=== PATIENT | male | born 1945 | race Caucasian/White ===

== ENCOUNTER 2017-10-30 14:58 | Emergency (ER) | payer MEDICARE, OTHER ==
[2017-10-30 14:59] VITALS: BMI 26.5
[2017-10-30 15:17] VITALS: BP 118/72; PULSE 102; RESP 16; TEMP 98.9; O2SAT 98
--- NOTE | 2017-10-30 17:45 | ED PDOC ---
HPI: CCC, URI, Sore Throat Time Seen by Provider: 10/30/17 15:50 Chief Complaint (Nursing): Fever Chief Complaint (Provider): Fever History Per: Lost Charge Card Clerk (jesus #[id number]) History/Exam Limitations: language barrier (micronesian) Onset/Duration Of Symptoms: Days (x4) Current Symptoms Are (Timing): Still Present Additional Complaint(s): 72 year old male with previous medical history of hypertension and diabetes, who presents to the emergency department with a complaint of sore throat associated with cough and subjective fever ongoing for 4 days. Denied any chills , chest pain or shortness of breath. Patient stated he took Motrin for pain relief. PMD: Maurizio Morales MD Past Medical History Reviewed: Historical Data, Nursing Documentation, Vital Signs Vital Signs: Last Vital Signs Temp 98.9 F 10/30/17 15:14 Pulse 102 H 10/30/17 15:14 Resp 16 10/30/17 15:14 BP 118/72 10/30/17 15:14 Pulse Ox 98 10/30/17 17:49 - Medical History PMH: Anemia, Arthritis, Diabetes, Gastritis, HTN, Hypercholesterolemia, Peripheral Edema (occasional) Denies: HIV, Chronic Kidney Disease - Surgical History Surgical History: No Surg Hx - Family History Family History: States: Unknown Family Hx - Social History Current smoker - smoking cessation education provided: No Ex-Smoker (has not smoked in the last 12 months): No Alcohol: None Drugs: Denies - Home Medications Home Medications: Ambulatory Orders Medication Instructions Recorded Aspirin [Adult Low Dose Aspirin EC] 81 mg PO DAILY 10/04/16 Losartan [Cozaar] 50 mg PO DAILY 10/04/16 Metformin HCl [Glucophage] 850 mg PO BID 10/04/16 [id number]-[id number] Ethyl Esters [OMEGA 3] 1,000 mg PO BID 10/04/16 Rosuvastatin Calcium [Crestor] 10 mg PO DAILY 10/04/16 Ciprofloxacin HCl [Cipro] 500 mg PO BID #20 tablet 12/31/16 traMADol [Ultram] 50 mg PO TID PRN #30 tab 12/31/16 Levofloxacin [Levaquin] 500 mg PO DAILY #7 tablet 10/30/17 - Allergies Allergies/Adverse Reactions: Allergies Allergy/AdvReac Type Severity Reaction Status Date / Time Penicillins Allergy RASH Verified 10/31/16 14:11 Review of Systems ROS Statement: Except As Marked, All Systems Reviewed And Found Negative Constitutional: Positive for: Fever (subjective). Negative for: Chills ENT: Positive for: Throat Pain Cardiovascular: Negative for: Chest Pain Respiratory: Positive for: Cough. Negative for: Shortness of Breath Physical Exam - Reviewed Nursing Documentation Reviewed: Yes Vital Signs Reviewed: Yes - Physical Exam Appears: Positive for: Well, Non-toxic, No Acute Distress Skin: Positive for: Normal Color Eye Exam: Positive for: Normal appearance ENT: Positive for: Normal ENT Inspection Neck: Positive for: Normal Cardiovascular/Chest: Positive for: Regular Rate, Rhythm, Chest Non Tender Respiratory: Positive for: Normal Breath Sounds. Negative for: Decreased Breath Sounds, Respiratory Distress Neurologic/Psych: Positive for: Alert (x3), Oriented - ECG O2 Sat by Pulse Oximetry: 98 (RA) Pulse Ox Interpretation: Normal Medical Decision Making Medical Decision Making: Initial Impression: Viral illness Initial Plan: * Influenza A B Time: 1730 --Influenza: negative Scribe Attestation: Documented by Blaire Mcclure, acting as a scribe for Norma Garcia PA-C. Provider Scribe Attestation: All medical record entries made by the Scribe were at my direction and personally dictated by me. I have reviewed the chart and agree that the record accurately reflects my personal performance of the history, physical exam, medical decision making, and the department course for this patient. I have also personally directed, reviewed, and agree with the discharge instructions and disposition. Disposition - Clinical Impression Clinical Impression: URI (upper respiratory infection) Counseled Patient/Family Regarding: Diagnosis, Need For Followup, Rx Given - Disposition Disposition: Routine/Home Disposition Time: 17:35 Condition: STABLE Prescriptions: Levofloxacin [Levaquin] 500 mg PO DAILY #7 tablet Instructions: Upper Respiratory Infection (ED) Forms: [employer] (Frisian) Print Language: OCCITAN
== END 2017-10-30 17:53 | disposition home or self-care (01) ==
LOC: H.ER 14:58
DX: J06.9 Acute upper respiratory infection, unspecified (principal); E11.9 Type 2 diabetes mellitus without complications; E78.00 Pure hypercholesterolemia, unspecified; I10 Essential (primary) hypertension; Z79.82 Long term (current) use of aspirin; Z87.891 Personal history of nicotine dependence; Z88.0 Allergy status to penicillin

== ENCOUNTER 2017-11-17 13:57 | Emergency (ER) | payer MEDICARE, OTHER ==
[2017-11-17 13:58] VITALS: BMI 26.5
[2017-11-17 14:37] VITALS: BP 122/74; PULSE 82; RESP 18; TEMP 98.4; O2SAT 95
[2017-11-17] MEDS ORDERED: Sodium Chloride 0.9% 1,000 ML IV STA (14:47)
[2017-11-17] MEDS ORDERED: Iohexol 240 (50 ml) PO ONE (14:47)
--- NOTE | 2017-11-17 14:49 | ED PDOC ---
HPI: Abdomen Time Seen by Provider: 11/17/17 14:39 Chief Complaint (Nursing): Abdominal Pain Chief Complaint (Provider): Abdominal Pain History Per: Patient History/Exam Limitations: no limitations Onset/Duration Of Symptoms: Days (x8) Current Symptoms Are (Timing): Still Present Additional Complaint(s): 72-year-old male with a past medical history of diabetes, hypertension, and hypercholesterolemia, presents to the ER complaining of diffuse abdominal pain for 8 days. Patient states yesterday the pain worsened, especially near the right side and epigastrium. Denies any associated nausea, vomiting, diarrhea, chest pain, shortness of breath, weakness, or fever. Patient takes daily baby aspirin, as well as a statin and vascepa for his cholesterol. PMD: Dr. Morales Past Medical History Reviewed: Historical Data, Nursing Documentation, Vital Signs Vital Signs: Last Vital Signs Temp 98.4 F 11/17/17 14:33 Pulse 82 11/17/17 14:33 Resp 18 11/17/17 14:33 BP 122/74 11/17/17 14:33 Pulse Ox 95 11/17/17 17:07 - Medical History PMH: Anemia, Arthritis, Diabetes, Gastritis, HTN, Hypercholesterolemia, Peripheral Edema (occasional) Denies: HIV, Chronic Kidney Disease - Surgical History Surgical History: No Surg Hx - Family History Family History: States: Unknown Family Hx - Social History Ex-Smoker (has not smoked in the last 12 months): Yes Alcohol: None Drugs: Denies - Home Medications Home Medications: Ambulatory Orders Medication Instructions Recorded Aspirin [Adult Low Dose Aspirin EC] 81 mg PO DAILY 10/04/16 Losartan [Cozaar] 50 mg PO DAILY 10/04/16 Metformin HCl [Glucophage] 850 mg PO BID 10/04/16 Hhlwj-3-Nebo Ethyl Esters [OMEGA 3] 1,000 mg PO BID 10/04/16 Rosuvastatin Calcium [Crestor] 10 mg PO DAILY 10/04/16 Ciprofloxacin HCl [Cipro] 500 mg PO BID #20 tablet 12/31/16 traMADol [Ultram] 50 mg PO TID PRN #30 tab 12/31/16 Levofloxacin [Levaquin] 500 mg PO DAILY #7 tablet 10/30/17 Famotidine [Pepcid] 20 mg PO DAILY PRN #6 tab 11/17/17 - Allergies Allergies/Adverse Reactions: Allergies Allergy/AdvReac Type Severity Reaction Status Date / Time Penicillins Allergy RASH Verified 10/31/16 14:11 Review of Systems ROS Statement: Except As Marked, All Systems Reviewed And Found Negative Constitutional: Negative for: Fever, Chills Cardiovascular: Negative for: Chest Pain Respiratory: Negative for: Shortness of Breath Gastrointestinal: Positive for: Abdominal Pain. Negative for: Nausea, Vomiting , Diarrhea Neurological: Negative for: Weakness, Numbness, Dizziness Physical Exam - Reviewed Nursing Documentation Reviewed: Yes Vital Signs Reviewed: Yes - Physical Exam Appears: Positive for: Non-toxic, No Acute Distress Head Exam: Positive for: ATRAUMATIC, NORMOCEPHALIC Skin: Positive for: Normal Color, Warm, Dry Eye Exam: Positive for: EOMI, Normal appearance, PERRL Neck: Positive for: Normal, Painless ROM, Supple Cardiovascular/Chest: Positive for: Regular Rate, Rhythm. Negative for: Murmur Respiratory: Positive for: Normal Breath Sounds. Negative for: Accessory Muscle Use, Respiratory Distress Pulses-Radial (L): 2+ Pulses-Radial (R): 2+ Gastrointestinal/Abdominal: Positive for: Soft, Tenderness (at the right upper & lower quadrants, left lower quadrant, and epigastric). Negative for: Mass Back: Positive for: Normal Inspection. Negative for: L CVA Tenderness, R CVA Tenderness, Vertebral Tenderness Extremity: Positive for: Normal ROM. Negative for: Pedal Edema, Deformity Neurologic/Psych: Positive for: Alert, Oriented - Laboratory Results Result Diagrams: 11/17/17 15:30 11/17/17 15:30 Interpretation Of Abn Labs: no acute - ECG ECG: Positive for: Interpreted By Me, Viewed By Nc ECG Rhythm: Positive for: Normal QRS, Normal ST Segment, Sinus Rhythm O2 Sat by Pulse Oximetry: 95 (RA) Pulse Ox Interpretation: Normal - CT Scan/US US Abdomen Other Rad Studies (CT/US): Read By Radiologist, Radiology Report Reviewed Other Rad Interpretation: No acute findings *see report below - Progress ED Course And Treament: Time: 16:40 US Abdomen Limited: FINDINGS: LIVER: Measures 16.3 cm in length. Patent portal vein. Portal venous flow: Hepatopetal. Unremarkeable echogenicity of the liver parenchyma. No mass. No intrahepatic bile duct dilatation. Incidental finding(s): Simple cyst left hepatic lobe 8 x 10 mm. GALLBLADDER: Unremarkable. No gallstones. COMMON BILE DUCT: Measures 3.6 mm. No stones. No dilatation. PANCREAS: Obscured by overlying bowel gas. Non diagnostic assessment of the pancreas RIGHT KIDNEY: Measures 5.9 x 11.1 cm in length. Normal echogenicity. No calculus, mass, or hydronephrosis.Incidental finding(s): Multiple simple cysts the largest in the midpole region measures 1.5 x 1.6 x 1 cm AORTA: No aneurysmal dilatation. IVC: Unremarkable. OTHER FINDINGS: None . IMPRESSION: No significant or acute findings to account for/ related to the clinical presentation. Additional benign and/or incidental findings described above. 1859: Stable. AAOx3. Pain free. Fu with pcp. Medical Decision Making Medical Decision Making: Time: 14:46 Initial Impression: Abdominal pain Initial Plan: --EKG --CMP --Lipase --Troponin I --CBC w/ differential --NS IV 1000 ml at 1000 mls/hr --Pepcid 20 mg IVP --Iohexol 50 ml PO --CT Abd/Pelvis with PO & IV contrast --US Abdomen Limited --Reevaluation Scribe Attestation: Documented by Mercedes Menendez, acting as a scribe for Sivakumar Slaughter MD Provider Scribe Attestation: All medical record entries made by the Scribe were at my direction and personally dictated by me. I have reviewed the chart and agree that the record accurately reflects my personal performance of the history, physical exam, medical decision making, and the department course for this patient. I have also personally directed, reviewed, and agree with the discharge instructions and disposition. Disposition - Clinical Impression Clinical Impression: Abdominal pain - Patient ED Disposition Is Patient to be Admitted: No Counseled Patient/Family Regarding: Studies Performed, Diagnosis, Need For Followup, Rx Given - Disposition Referrals: [facility] [Outside] - 11/18/17 Disposition: Routine/Home Disposition Time: 18:59 Condition: STABLE Additional Instructions: Return if not better in 3 days. Prescriptions: Famotidine [Pepcid] 20 mg PO DAILY PRN #6 tab PRN Reason: Pain Instructions: Acute Abdominal Pain (ED) Print Language: TELUGU
[2017-11-17] MEDS ORDERED: Iohexol 240 (50 ml) ONE (15:17)
[2017-11-17 15:40] LABS: BASO % 0.7 % (0.0-2.0); EOS # 0.1 K/uL (0.0-0.7); EOS % 1.4 % (0.0-4.0); HEMOGLOBIN 11.4 g/dL (12.0-18.0); LYMPH # 1.1 K/uL (1.0-4.3); LYMPH % 32.7 % (20.0-40.0); MEAN CELL VOLUME 82.7 fl (80.0-94.0); MEAN CORPUSCULAR HEMOGLOBIN 27.4 pg (27.0-31.0); MEAN CORPUSCULAR HGB CONC 33.1 g/dL (33.0-37.0); MEAN PLATELET VOLUME 7.8 fl (7.2-11.7); MONO # 0.4 K/uL (0.0-0.8); MONO % 10.3 % (0.0-10.0); NEUT # 1.9 K/uL (1.8-7.0); NEUT % 54.9 % (50.0-75.0); NRBC % 0.1 % (0.0-0.0); RBC 4.15 Mil/uL (4.40-5.90); RED CELL DISTRIBUTION WIDTH 15.8 % (11.5-14.5); WHITE BLOOD COUNT 3.5 K/uL (4.8-10.8)
[2017-11-17 15:47] LABS: ALB/GLOB RATIO 1.2 (1.0-2.1); ALBUMIN 4.4 g/dL (3.5-5.0); ALT/SGPT 38 U/L (21-72); AST/SGOT 29 U/L (17-59); BLOOD UREA NITROGEN 19 mg/dl (9-20); CALCIUM 9.7 mg/dL (8.4-10.2); GFR AFRICAN-AMERICAN > 60; GFR NON-AFRICAN AMERICAN > 60; LIPASE 244 U/L (23-300)
--- NOTE | 2017-11-17 16:42 | US ---
HISTORY: Right upper quadrant abdominal pain COMPARISON: None. TECHNIQUE: Sonographic evaluation of the right upper quadrant of the abdomen. FINDINGS: LIVER: Measures 16.3 cm in length. Patent portal vein. Portal venous flow: Hepatopetal. Unremarkeable echogenicity of the liver parenchyma. No mass. No intrahepatic bile duct dilatation. Incidental finding(s): Simple cyst left hepatic lobe 8 x 10 mm. GALLBLADDER: Unremarkable. No gallstones. COMMON BILE DUCT: Measures 3.6 mm. No stones. No dilatation. PANCREAS: Obscured by overlying bowel gas. Non diagnostic assessment of the pancreas RIGHT KIDNEY: Measures 5.9 x 11.1 cm in length. Normal echogenicity. No calculus, mass, or hydronephrosis.Incidental finding(s): Multiple simple cysts the largest in the midpole region measures 1.5 x 1.6 x 1 cm AORTA: No aneurysmal dilatation. IVC: Unremarkable. OTHER FINDINGS: None . IMPRESSION: No significant or acute findings to account for/ related to the clinical presentation. Additional benign and/or incidental findings described above.
[2017-11-17] MEDS ORDERED: Iohexol 300 50 ML ONE (16:58)
[2017-11-17] MEDS ORDERED: Sodium Chloride 0.9% 50 ML IV ONE ×2 (16:59)
--- NOTE | 2017-11-17 18:46 | CT ---
PROCEDURE: CT Abdomen and Pelvis with contrast HISTORY: abd pain COMPARISON: None. TECHNIQUE: Contrast dose: 95 cc Omnipaque 300 Radiation dose: Total exam DLP = 896.81 mGy-cm. This CT exam was performed using one or more of the following dose reduction techniques: Automated exposure control, adjustment of the mA and/or kV according to patient size, and/or use of iterative reconstruction technique. FINDINGS: LOWER THORAX: Unremarkable. LIVER: Hepatopedal blood flow. Fatty infiltration manifest ultrasonographically as increased Incidental finding(s): Simple cyst 1 cm left hepatic lobe GALLBLADDER AND BILE DUCTS: Cholelithiasis without CT evidence of acute cholecystitis. PANCREAS: Unremarkable. No gross lesion or ductal dilatation. SPLEEN: Unremarkable. ADRENALS: Below and I do not Unremarkable. No mass. KIDNEYS AND URETERS: Unremarkable. No hydronephrosis. No solid mass. Incidental finding(s): Simple renal cysts bilaterally VASCULATURE: Unremarkable. No aortic aneurysm. BOWEL: Focal thickening of the pre-pyloric region of the stomach. This likely represents gastritis. No discrete mass or area of ulceration identified. This does not produce gastric outflow obstruction. APPENDIX: Normal appendix. PERITONEUM: Unremarkable. No free fluid. No free air. LYMPH NODES: Unremarkable. No enlarged lymph nodes. BLADDER: Unremarkable. REPRODUCTIVE: Mildly enlarged prostate. BONES: No acute fracture. Multilevel degenerative changes including spinal stenosis L4-5 and L5-S1. OTHER FINDINGS: None. IMPRESSION: Cholelithiasis without CT evidence of acute cholecystitis. Focal thickening of the distal stomach likely gastritis. Additional benign and/or incidental findings described above.
--- NOTE | 2017-11-18 10:55 | CARD ---
APPROVED REPORT EKG Measurement Heart [id number] <Conclusion> Normal sinus rhythm Possible Left atrial enlargement Borderline ECG
== END 2017-11-17 19:15 | disposition home or self-care (01) ==
LOC: H.ER 13:57
DX: R10.9 Unspecified abdominal pain (principal); E11.9 Type 2 diabetes mellitus without complications; I10 Essential (primary) hypertension; Z88.0 Allergy status to penicillin; Z87.891 Personal history of nicotine dependence; E78.00 Pure hypercholesterolemia, unspecified
CPT/HCPCS: 74177; 76705; 80053; 83690; 84484; 85025; 93005; 96374; 99282; J7040; Q9966; Q9967

== ENCOUNTER 2017-11-28 18:58 | Emergency (ER) | payer MEDICARE, OTHER ==
[2017-11-28 18:59] VITALS: BMI 26.5
[2017-11-28 19:31] VITALS: BP 158/74; PULSE 99; RESP 20; TEMP 98.4; O2SAT 99
--- NOTE | 2017-11-28 20:13 | ED PDOC ---
HPI: Male Pain Time Seen by Provider: 11/28/17 19:32 Chief Complaint (Nursing): Male Genitourinary Chief Complaint (Provider): Hematuria History Per: Patient, Multiple Needle Stitcher (Planning Director [id number]) History/Exam Limitations: no limitations Onset/Duration Of Symptoms: Days Current Symptoms Are (Timing): Still Present Associated Symptoms: denies: Fever, Nausea, Vomiting, Chest Pain, Urinary Symptoms (denies incontinence) Alleviating Factors: None Additional Complaint(s): 72 year old male presents to the ED complaining of hematuria and dysuria. The patient states that earlier today he experienced some hematuria which resolved but the dysuria is still present. He reports that for the past 4-5 years he has been experiencing hematuria but never in such a large amount. The patient states that he was evaluated by a urologist 1 year ago and was told that there was nothing that could be done. Denies fever, abdominal pain, nausea, vomiting, weakness, chest pain, flank pain, incontinence. PMD: Shabana Cabrera Past Medical History Reviewed: Historical Data, Nursing Documentation, Vital Signs Vital Signs: Last Vital Signs Temp 98.4 F 11/28/17 19:27 Pulse 99 H 11/28/17 19:27 Resp 20 11/28/17 19:27 BP 158/74 H 11/28/17 19:27 Pulse Ox 99 11/28/17 19:27 - Medical History PMH: Anemia, Arthritis, Diabetes, Gastritis, HTN, Hypercholesterolemia, Peripheral Edema (occasional) Denies: HIV, Chronic Kidney Disease - Surgical History Surgical History: No Surg Hx - Family History Family History: States: Unknown Family Hx - Living Arrangements Living Arrangements: With Family - Home Medications Home Medications: Ambulatory Orders Medication Instructions Recorded Aspirin [Adult Low Dose Aspirin EC] 81 mg PO DAILY 10/04/16 Losartan [Cozaar] 50 mg PO DAILY 10/04/16 Metformin HCl [Glucophage] 850 mg PO BID 10/04/16 [id number] Ethyl Esters [OMEGA 3] 1,000 mg PO BID 10/04/16 Rosuvastatin Calcium [Crestor] 10 mg PO DAILY 10/04/16 Ciprofloxacin HCl [Cipro] 500 mg PO BID #20 tablet 12/31/16 traMADol [Ultram] 50 mg PO TID PRN #30 tab 12/31/16 Levofloxacin [Levaquin] 500 mg PO DAILY #7 tablet 10/30/17 Famotidine [Pepcid] 20 mg PO DAILY PRN #6 tab 11/17/17 Ciprofloxacin [Cipro] 500 mg PO BID #14 tab 11/28/17 - Allergies Allergies/Adverse Reactions: Allergies Allergy/AdvReac Type Severity Reaction Status Date / Time Penicillins Allergy RASH Verified 10/31/16 14:11 Review of Systems Constitutional: Negative for: Fever Cardiovascular: Negative for: Chest Pain Gastrointestinal: Negative for: Nausea, Vomiting, Abdominal Pain Genitourinary Male: Positive for: Dysuria, Hematuria. Negative for: Incontinence Musculoskeletal: Negative for: Back Pain (no flank pain) Physical Exam - Reviewed Nursing Documentation Reviewed: Yes Vital Signs Reviewed: Yes - Physical Exam Appears: Positive for: Non-toxic, No Acute Distress Head Exam: Positive for: ATRAUMATIC, NORMAL INSPECTION, NORMOCEPHALIC Skin: Positive for: Normal Color, Warm, Dry. Negative for: Rash Eye Exam: Positive for: Normal appearance, EOMI, PERRL. Negative for: Nystagmus ENT: Positive for: Normal ENT Inspection. Negative for: Nasal Congestion, Tonsillar Exudate Neck: Positive for: Normal, Painless ROM, Supple Cardiovascular/Chest: Positive for: Regular Rate, Rhythm, Chest Non Tender. Negative for: Tachycardia Respiratory: Positive for: Normal Breath Sounds. Negative for: Wheezing, Respiratory Distress Gastrointestinal/Abdominal: Positive for: Normal Exam, Bowel Sounds, Soft. Negative for: Tenderness, Guarding, Rebound Back: Positive for: Normal Inspection. Negative for: L CVA Tenderness, R CVA Tenderness Extremity: Positive for: Normal ROM. Negative for: Tenderness, Calf Tenderness , Deformity Neurologic/Psych: Positive for: Alert, Oriented, Gait - Laboratory Results Result Diagrams: 11/28/17 21:16 11/28/17 21:16 Urine dip results: Positive for: Leukocyte Esterase (small), Blood (moderate), Nitrate (positive) - ECG O2 Sat by Pulse Oximetry: 99 (RA) Pulse Ox Interpretation: Normal Medical Decision Making Medical Decision Makin Initial Impression 72 y/o female presenting with hematuria and dysuria Initial Plan: * Type and Screen * CMP * Udip * CBC * Partial Thromboplastin * PT/INR * Urine Culture * Reevaluation Documented by Chelsey Joy acting as a scribe for Elias Dos Santos PA-C. All medical record entries made by the Scribe were at my direction and personally dictated by me. I have reviewed the chart and agree that the record accurately reflects my personal performance of the history, physical exam, medical decision making, and the department course for this patient. I have also personally directed, reviewed, and agree with the discharge instructions and disposition. Disposition - Clinical Impression Clinical Impression: Urinary tract infection - Patient ED Disposition Is Patient to be Admitted: No - Disposition Referrals: [facility] [Outside] Disposition: Routine/Home Disposition Time: 22:03 Condition: STABLE Additional Instructions: Follow up with PMD in 2 days for further evaluation. Prescriptions: Ciprofloxacin [Cipro] 500 mg PO BID #14 tab Instructions: Urinary Tract Infection in Women (ED) Forms: [employer] (French) Print Language: KOREAN
[2017-11-28 21:24] LABS: BASO % 0.3 % (0.0-2.0); EOS # 0.1 K/uL (0.0-0.7); EOS % 0.7 % (0.0-4.0); LYMPH # 1.5 K/uL (1.0-4.3); LYMPH % 20.1 % (20.0-40.0); MEAN CELL VOLUME 83.3 fl (80.0-94.0); MEAN CORPUSCULAR HEMOGLOBIN 26.7 pg (27.0-31.0); MEAN PLATELET VOLUME 7.7 fl (7.2-11.7); MONO # 0.8 K/uL (0.0-0.8); MONO % 9.8 % (0.0-10.0); NEUT # 5.3 K/uL (1.8-7.0); NEUT % 69.1 % (50.0-75.0); NRBC % 0.1 % (0.0-0.0); RBC 4.13 Mil/uL (4.40-5.90); RED CELL DISTRIBUTION WIDTH 15.5 % (11.5-14.5); WHITE BLOOD COUNT 7.7 K/uL (4.8-10.8)
[2017-11-28 21:31] LABS: PARTIAL THROMBOPLASTIN TIME 33.7 Seconds (25.6-37.1); PROTHROMBIN TIME 10.8 Seconds (9.8-13.1)
[2017-11-28 21:42] LABS: BLOOD UREA NITROGEN 20 mg/dl (9-20); GFR AFRICAN-AMERICAN > 60; GFR NON-AFRICAN AMERICAN > 60
[2017-11-28 21:43] LABS: ALB/GLOB RATIO 1.2 (1.0-2.1); ALBUMIN 4.6 g/dL (3.5-5.0); ALT/SGPT 39 U/L (21-72); AST/SGOT 23 U/L (17-59); CALCIUM 9.9 mg/dL (8.4-10.2)
== END 2017-11-28 22:23 | disposition home or self-care (01) ==
LOC: H.ER 18:58
DX: N39.0 Urinary tract infection, site not specified (principal)

== ENCOUNTER 2018-07-28 08:28 | Day surgery (SDC) | payer MEDICARE, SELFPAY ==
[2018-07-28] MEDS ORDERED: Lactated Ringer's 500 ML IV ONE (08:54)
[2018-07-28 09:04] VITALS: BMI 28.5
[2018-07-28 09:22] VITALS: TEMP 97
[2018-07-28] MEDS ORDERED: Propofol 10 mg/ml Inj (20 ML) ONE (10:13)
[2018-07-28] MEDS ORDERED: ePHEDrine 50 mg/ml Inj ONE (10:33)
[2018-07-28 11:26] VITALS: BP 112/71; PULSE 66; RESP 14; O2SAT 100
== END 2018-07-28 13:46 | disposition home or self-care (01) ==
LOC: H.ENDO 08:28
PROVIDERS: ATTEND Internal Medicine Gastroenterology
DX: Z12.11 Encounter for screening for malignant neoplasm of colon (principal); E11.9 Type 2 diabetes mellitus without complications; E78.5 Hyperlipidemia, unspecified; I10 Essential (primary) hypertension; K64.8 Other hemorrhoids; D50.9 Iron deficiency anemia, unspecified; K44.9 Diaphragmatic hernia without obstruction or gangrene; K29.50 Unspecified chronic gastritis without bleeding
CPT/HCPCS: 43239; 45378; 82948; 88305; J2704; J7120

== ENCOUNTER 2019-01-26 16:32 | Inpatient (IN) | payer MEDICARE, OTHER ==
[2019-01-26 16:32] VITALS: BMI 28.5
[2019-01-26 18:39] LABS: BASO % 0.9 % (0.0-2.0); EOS # 0.1 K/uL (0.0-0.7); HEMOGLOBIN 10.6 g/dL (12.0-18.0); LYMPH # 1.1 K/uL (1.0-4.3); MEAN CELL VOLUME 81.1 fl (80.0-94.0); MEAN CORPUSCULAR HEMOGLOBIN 25.9 pg (27.0-31.0); MEAN PLATELET VOLUME 7.4 fl (7.2-11.7); MONO # 0.4 K/uL (0.0-0.8); MONO % 11.3 % (0.0-10.0); NEUT # 1.9 K/uL (1.8-7.0); NEUT % 53.8 % (50.0-75.0); NRBC % 0.1 % (0.0-0.0); RBC 4.1 Mil/uL (4.40-5.90); WHITE BLOOD COUNT 3.5 K/uL (4.8-10.8)
[2019-01-26 18:43] LABS: PROTHROMBIN TIME 11.1 Seconds (9.8-13.1)
[2019-01-26 18:45] LABS: PARTIAL THROMBOPLASTIN TIME 35.5 Seconds (25.6-37.1)
[2019-01-26 18:54] LABS: ALB/GLOB RATIO 1.4 (1.0-2.1); ALBUMIN 4.6 g/dL (3.5-5.0); ALT/SGPT 20 U/L (21-72); AST/SGOT 38 U/L (17-59); BLOOD UREA NITROGEN 19 mg/dl (9-20); CALCIUM 9.7 mg/dL (8.4-10.2); GFR NON-AFRICAN AMERICAN > 60
--- NOTE | 2019-01-26 19:00 | ED PDOC ---
HPI: Headache Time Seen by Provider: 01/26/19 17:36 Chief Complaint (Nursing): Headache Chief Complaint (Provider): headache History Per: Patient, Nocturnist Physician ([id number]) History/Exam Limitations: no limitations Onset/Duration Of Symptoms: Days (3), Gradual Current Symptoms Are (Timing): Still Present Severity: Severe Quality: Tightness Preceeding Symptoms: Visual Disturbances Associated Symptoms: Blurred Vision. denies: Nausea, Vomiting, Extremity Weakness Additional Complaint(s): 73yo male c/o headache bitemporal associated w mild blurred vision ongoing for about 2-3 days, denies fever, weakness, neck pain, nausea or trauma/falls. No prior history of similar headaches. Denies taking blood thinners. Past Medical History Reviewed: Historical Data, Nursing Documentation, Vital Signs Vital Signs: Last Vital Signs Temp 98.2 F 01/26/19 16:57 Pulse 88 01/26/19 16:57 Resp 16 01/26/19 16:57 BP 131/76 01/26/19 16:57 Pulse Ox 98 01/26/19 16:57 - Medical History PMH: Anemia, Arthritis, Diabetes, HTN, Hypercholesterolemia, Peripheral Edema (occasional) Denies: HIV, Chronic Kidney Disease - Surgical History Other surgeries: bunion - Family History Family History: States: Unknown Family Hx - Immunization History Hx Influenza Vaccination: Yes - Home Medications Home Medications: Ambulatory Orders Medication Instructions Recorded Aspirin [Adult Low Dose Aspirin EC] 81 mg PO DAILY 10/04/16 Losartan [Cozaar] 50 mg PO DAILY 10/04/16 Metformin HCl [Glucophage] 850 mg PO BID 10/04/16 [id number] Ethyl Esters [OMEGA 3] 1,000 mg PO BID 10/04/16 Rosuvastatin Calcium [Crestor] 10 mg PO DAILY 10/04/16 Ciprofloxacin HCl [Cipro] 500 mg PO BID #20 tablet 12/31/16 traMADol [Ultram] 50 mg PO TID PRN #30 tab 12/31/16 - Allergies Allergies/Adverse Reactions: Allergies Allergy/AdvReac Type Severity Reaction Status Date / Time Penicillins Allergy RASH Verified 07/28/18 09:04 Review of Systems Constitutional: Negative for: Fever Cardiovascular: Negative for: Chest Pain Respiratory: Negative for: Shortness of Breath Gastrointestinal: Negative for: Abdominal Pain Genitourinary Male: Negative for: Dysuria Musculoskeletal: Negative for: Neck Pain, Back Pain Skin: Negative for: Rash, Lesions, Jaundice Neurological: Negative for: Weakness, Numbness Psych: Negative for: Depression Physical Exam - Reviewed Nursing Documentation Reviewed: Yes Vital Signs Reviewed: Yes - Physical Exam Appears: Positive for: Well, Non-toxic, No Acute Distress Head Exam: Positive for: ATRAUMATIC, NORMAL INSPECTION, NORMOCEPHALIC Skin: Positive for: Normal Color, Warm, DRY Eye Exam: Positive for: EOMI, Normal appearance, PERRL ENT: Positive for: Normal ENT Inspection Neck: Positive for: Normal, Painless ROM Cardiovascular/Chest: Positive for: Regular Rate, Rhythm Respiratory: Positive for: CNT, Normal Breath Sounds Gastrointestinal/Abdominal: Positive for: Normal Exam, Soft Back: Positive for: Normal Inspection Extremity: Positive for: Normal ROM Neurological/Psych: Positive for: Awake, Alert, Normal Tone - Laboratory Results Result Diagrams: 01/26/19 18:24 01/26/19 18:24 Lab Results: PT 11.1 Seconds (9.8-13.1) 01/26/19 18:24 INR 1.0 01/26/19 18:24 APTT 35.5 Seconds (25.6-37.1) 01/26/19 18:24 Total Bilirubin 0.2 mg/dl (0.2-1.3) 01/26/19 18:24 AST 38 U/L (17-59) 01/26/19 18:24 ALT 20 U/L (21-72) L D 01/26/19 18:24 Alkaline Phosphatase 52 U/L (38-126) 01/26/19 18:24 Total Protein 7.9 G/DL (6.3-8.2) 01/26/19 18:24 Albumin 4.6 g/dL (3.5-5.0) 01/26/19 18:24 Globulin 3.3 gm/dL (2.2-3.9) 01/26/19 18:24 Albumin/Globulin Ratio 1.4 (1.0-2.1) 01/26/19 18:24 - ECG O2 Sat by Pulse Oximetry: 98 Medical Decision Making Medical Decision Making: workup with bloodwork, CT and CTA given severe headache new onset initiated endorsed Dr Irving 7pm Disposition - Clinical Impression Clinical Impression: Headache - Patient ED Disposition Is Patient to be Admitted: Transfer of Care - Disposition Disposition: Transfer of Care Disposition Time: 19:01 Condition: FAIR Forms: [email or web address] (Portuguese) Patient Signed Over To: Florencia Irving (pending ESR, imaging)
[2019-01-26] MEDS ORDERED: Iodixanol 320 MG/ML 100 ML BOTTLE IV ONE (19:02)
[2019-01-26] MEDS ORDERED: Sodium Chloride 0.9% 50 ML IV ONE (19:02)
--- NOTE | 2019-01-26 20:32 | ED PDOC ---
- Laboratory Results Result Diagrams: 01/26/19 18:24 01/26/19 18:24 Lab Results: PT 11.1 Seconds (9.8-13.1) 01/26/19 18:24 INR 1.0 01/26/19 18:24 APTT 35.5 Seconds (25.6-37.1) 01/26/19 18:24 Total Bilirubin 0.2 mg/dl (0.2-1.3) 01/26/19 18:24 AST 38 U/L (17-59) 01/26/19 18:24 ALT 20 U/L (21-72) L D 01/26/19 18:24 Alkaline Phosphatase 52 U/L (38-126) 01/26/19 18:24 Total Protein 7.9 G/DL (6.3-8.2) 01/26/19 18:24 Albumin 4.6 g/dL (3.5-5.0) 01/26/19 18:24 Globulin 3.3 gm/dL (2.2-3.9) 01/26/19 18:24 Albumin/Globulin Ratio 1.4 (1.0-2.1) 01/26/19 18:24 - ECG O2 Sat by Pulse Oximetry: 98 (RA) Pulse Ox Interpretation: Normal Medical Decision Making Medical Decision Makin:00 Patient signed out this provuder by Dr. Overton pending CTA head, CT head, labs, neurology consult and ESR. Patient presented to the ED with new onset headache and blurry vision. 19:07 CT Head FINDINGS: BRAIN No acute intraparenchymal hemorrhage. No mass lesion. No CT evidence for acute territorial infarct. No midline shift or extra-axial collections. VENTRICLES: No hydrocephalus. ORBITS: The orbits are unremarkable. SINUSES AND MASTOIDS: The paranasal sinuses and mastoid air cells are clear. BONES: No fracture. SOFT TISSUES: Unremarkable. IMPRESSION: No acute intracranial abnormality. 20:26 CTA Head and Neck FINDINGS: VASCULATURE: NECK: COMMON CAROTID ARTERIES No significant canal stenosis. No dissection or occlusion. Atheromatous calcific plaquing is noted within the carotid bulbs bilaterally; slightly more prevalent on the right. EXTERNAL CAROTID ARTERIES Patent. NECK: INTERNAL CAROTID ARTERIES No stenosis by NASCET criteria. No dissection or occlusion. VERTEBRAL ARTERIES No significant canal stenosis. No dissection or occlusion. HEAD: ANTERIOR CEREBRAL ARTERIES No significant stenosis. No occlusion. No aneurysm. MIDDLE CEREBRAL ARTERIES No significant stenosis. No occlusion. No aneurysm. POSTERIOR CEREBRAL ARTERIES No significant stenosis. No occlusion. No aneurysm. BASILAR ARTERY No significant stenosis. No occlusion. No aneurysm. OTHER: SOFT TISSUES No acute finding. BONES No acute osseous abnormality. Anterior hyperostotic spurring is seen arising from the C5-C6-C7 vertebrae. IMPRESSION: 1. 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 2. Otherwise, unremarkable CTA of the head and neck. 20:[address] Ferraro who recommends admission for MRI as well as Depakote, Decadron, Mag Sulfate and Toradol. He will evaluate the patient tomorrow. Scribe Attestation: Documented by Charlene Rice, acting as a scribe for Florencia Irving MD. Provider Scribe Attestation: All medical record entries made by the Scribe were at my direction and personally dictated by me. I have reviewed the chart and agree that the record accurately reflects my personal performance of the history, physical exam, [facility] decision making, and the department course for this patient. I have also personally directed, reviewed, and agree with the discharge instructions and disposition. Disposition - Clinical Impression Clinical Impression: Headache - POA Present On Arrival: None - Disposition Disposition: Admitted as In-Patient Disposition Time: 20:52 Condition: FAIR Forms: HESIODO (Czech)
[2019-01-26] MEDS ORDERED: Divalproex 500 mg ER (ONCE DAILY formulation) PO STA (20:48)
[2019-01-26] MEDS ORDERED: Magnesium Sulfate 2 gm/50 ml 2 GM/50 ML BAG IVPB ONE (20:50)
[2019-01-26] MEDS ORDERED: Dexamethasone 12 MG in Sodium Chloride 0.9% 50 ML IV STA (20:50)
[2019-01-26] MEDS ORDERED: Magnesium Sulfate 2 gm/50 ml 2 GM/50 ML BAG ONE (22:08)
[2019-01-27] MEDS: Dexamethasone 6 MG in Sodium Chloride 0.9% 50 ML IVPB SCH ×2 (04:37→09:00)
[2019-01-27 06:50] LABS: BASO % 0.3 % (0.0-2.0); EOS % 0.1 % (0.0-4.0); HEMOGLOBIN 10.8 g/dL (12.0-18.0); LYMPH # 0.8 K/uL (1.0-4.3); LYMPH % 23.6 % (20.0-40.0); MEAN CELL VOLUME 81.3 fl (80.0-94.0); MEAN CORPUSCULAR HEMOGLOBIN 26.3 pg (27.0-31.0); MEAN CORPUSCULAR HGB CONC 32.4 g/dL (33.0-37.0); MEAN PLATELET VOLUME 7.5 fl (7.2-11.7); MONO # 0.1 K/uL (0.0-0.8); MONO % 2.9 % (0.0-10.0); NEUT # 2.6 K/uL (1.8-7.0); NEUT % 73.1 % (50.0-75.0); RBC 4.1 Mil/uL (4.40-5.90); RED CELL DISTRIBUTION WIDTH 15.8 % (11.5-14.5); WHITE BLOOD COUNT 3.6 K/uL (4.8-10.8)
[2019-01-27 07:12] LABS: LDL CHOLESTEROL 49 mg/dL (0-129)
[2019-01-27 07:18] LABS: ALB/GLOB RATIO 1.3 (1.0-2.1); ALBUMIN 4.4 g/dL (3.5-5.0); ALT/SGPT 24 U/L (21-72); AST/SGOT 21 U/L (17-59); BLOOD UREA NITROGEN 20 mg/dl (9-20); CALCIUM 9.9 mg/dL (8.4-10.2); GFR NON-AFRICAN AMERICAN > 60; HDL CHOLESTEROL 35 MG/DL (30-70)
--- NOTE | 2019-01-27 08:44 | CT ---
Date of service: 01/26/2019 PROCEDURE: CT HEAD WITHOUT CONTRAST. HISTORY: r/o ICH COMPARISON: None available. TECHNIQUE: Axial computed tomography images were obtained through the head/brain without intravenous contrast. Radiation dose: Total exam DLP = 755.43 mGy-cm. This CT exam was performed using one or more of the following dose reduction techniques: Automated exposure control, adjustment of the mA and/or kV according to patient size, and/or use of iterative reconstruction technique. FINDINGS: HEMORRHAGE: No intracranial hemorrhage. BRAIN: Jade-white matter differentiation is preserved. There is no mass, mass effect or abnormal extra-axial fluid collection. There is no territorial infarction. The midline sagittal structures are normal. VENTRICLES: There is mild age-related global parenchymal volume loss and proportionate enlargement of the ventricles and cortical sulci. CALVARIUM: There is no calvarial fracture or extracranial soft tissue swelling. PARANASAL SINUSES: Predominantly clear. MASTOID AIR CELLS: Predominantly clear. OTHER FINDINGS: None. IMPRESSION: No acute intracranial abnormality.
[2019-01-27 10:08] LABS: SQUAMOUS EPITHIAL 2 /hpf (0-5); URINE BILIRUBIN NEGATIVE (NEGATIVE); URINE BLOOD SMALL (NEGATIVE); URINE CLARITY SLIGHTY-CLOUDY (Clear); URINE COLOR YELLOW (YELLOW); URINE GLUCOSE (UA) NEG (NEGATIVE); URINE LEUKOCYTE ESTERASE NEG Leu/uL (Negative); URINE PROTEIN 100 mg/dL (NEGATIVE); URINE UROBILINOGEN 0.2-1.0 mg/dL (0.2-1.0)
--- NOTE | 2019-01-27 10:18 | US ---
Date of service: 01/27/2019 PROCEDURE: Duplex ultrasound of the carotid and vertebral arteries. HISTORY: Headache and blurry vision COMPARISON: None available. TECHNIQUE: Grayscale and duplex Doppler evaluation of the cervical carotid and vertebral arteries were performed. The common carotid, carotid bifurcations and cervical ICA and proximal ECA were evaluated. The vertebral arteries were evaluated for gross patency and direction. FINDINGS: RIGHT CAROTID ARTERIES: Common Carotid Artery: Maximal flow velocity of 68.2 cm/s. Carotid Bifurcation: Intimal thickening is present Internal Carotid Artery:Heterogeneous plaque formation. Maximal flow velocity of 84.7 cm/s. External Carotid Artery (proximal branches): Maximal flow velocity of 107.6 cm/s. ICA/CCA Ratio: 1.2 LEFT CAROTID ARTERIES: Common Carotid Artery: Maximal flow velocity of 91.1 cm/s. Carotid Bifurcation: Intimal thickening is present Internal Carotid Artery:Heterogeneous plaque formation. Maximal flow velocity of 91.3 cm/s. External Carotid Artery (proximal branches): Maximal flow velocity of 77.9 cm/s. ICA/CCA Ratio: VERTEBRAL ARTERIES: Right Vertebral Artery: Patent. Antegrade flow. Left Vertebral Artery: Patent. Antegrade flow. OTHER FINDINGS: Atherosclerotic calcification present. IMPRESSION: Right ICA degree of stenosis: Less than 50% Left ICA degree of stenosis: Less than 50% Reference Internal Carotid Artery (ICA) Peak Systolic Velocity (PSV) for above: 1. Less than 50% stenosis less than 125 cm/s peak systolic velocity 2. 50-69% stenosis 125-230cm/s peak systolic velocity 3. Greater than 70% but less than near occlusion greater than 230 cm/s peak systolic velocity
--- NOTE | 2019-01-27 11:53 | CT ---
Date of service: 01/26/2019 PROCEDURE: CTA HEAD AND NECK WITH CONTRAST HISTORY: Stroke COMPARISON: None available. TECHNIQUE: Initial noncontrast head CT was performed. Subsequently, CT angiogram of the head and neck were performed after the intravenous administration of 80 mL of Omnipaque 350. Contiguous 1.5mm thick images were obtained in the axial plane of the neck. 2-D coronal and sagittal MPR images were obtained. Imaging postprocessing was performed with 3-D images also obtained. A delayed contrast head CT was also obtained. This CT exam was performed using one or more of the following dose reduction techniques: Automated exposure control, adjustment of the mA and/or kV according to patient size, and/or use of iterative reconstruction technique. Contrast dose: Radiation dose: Total exam DLP = 488.04 mGy-cm. FINDINGS: HEAD: There are atherosclerotic calcifications in the cavernous carotid arteries. Right: The intracranial internal carotid artery, and anterior and middle cerebral arteries are widely patent. Left: The intracranial internal carotid artery, and anterior and middle cerebral arteries are widely patent. Posterior circulation: The visualized intracranial vertebral arteries, basilar artery and posterior cerebral arteries are widely patent. There is origin of the left posterior cerebral artery, an anatomic variant with There is no endoluminal filling defect to suggest thrombus. There is no intracranial saccular aneurysm. NECK: There is a three vessel aortic arch. There is no stenosis at the origins of the great vessels at the level of the aortic arch. There are atherosclerotic calcifications in the carotid bulbs, right proximal internal and external carotid arteries without evidence for hemodynamically significant stenosis. Right Carotid: On the right, the common carotid, internal carotid and external carotid arteries are widely patent. There is no hemodynamically significant stenosis in the internal carotid artery by NASCET criteria. Left Carotid: On the left, the common carotid, internal carotid and external carotid arteries are widely patent. There is no hemodynamically significant stenosis in the internal carotid artery by NASCET criteria. The vertebral arteries are widely patent. The left vertebral artery is hypoplastic, an anatomic variant. The visualized soft tissues of the neck are normal. The visualized brain and cervical spine are within normal limits. The lung apices are clear. IMPRESSION: 1. No evidence of endoluminal thrombus,occlusion or definite significant stenosis in the intracranial arteries. 2. No evidence of hemodynamically significant stenosis in the internal carotid arteries. 3. Patent bilateral vertebral arteries. A preliminary report was provided by [facility].
--- NOTE | 2019-01-27 13:16 | CP.PCM.CON ---
History of Present Illness - History of Present Illness History of Present Illness: Neurology Consultation Note: Consult requested by Dr. Irving Mr. Crews is a 73-year-old man with a past medical history of HTN, HLD, DM, who has been having a headache for the last 2-3 days associated with blurry vision. He presented to the ED and vital signs were essentially normal. CT scan of the head did not show any acute findings. I spoke with Dr. Irving last night when the patient first came to the ED and recommended treatment of the headache with decadron, depakote and magnesium suflate. Today, his headache is gone. Review of Systems - Constitutional Constitutional: As Per HPI - EENT Ears: absent: As Per HPI, Decreased Hearing, Ear Discharge, Ear Pain, Tinnitus, Abnormal Hearing, Disequilibrium, Dizziness, Other Nose/Mouth/Throat: absent: As Per HPI, Epistaxis, Nasal Congestion, Nasal Discharge, Nasal Obstruction, Nasal Trauma, Nose Pain, Post Nasal Drip, Sinus Pain, Sinus Pressure, Bleeding Gums, Change in Voice, Dental Pain, Dry Mouth, Dysphagia, Halitosis, Hoarsness, Lip Swelling, Mouth Lesions, Mouth Pain, Odynophagia, Sore Throat, Throat Swelling, Tongue Swelling, Facial Pain, Neck Pain, Neck Mass, Other - Cardiovascular Cardiovascular: absent: As Per HPI, Acrocyanosis, Chest Pain, Chest Pain at Rest, Chest Pain with Activity, Claudication, Diaphoresis, Dyspnea, Dyspnea on Exertion, Edema, Irregular Heart Rhythm, Pain Radiating to Arm/Neck/Jaw, Leg Edema, Leg Ulcers, Lightheadedness, Orthopnea, Palpitations, Paroxysmal Noc turnal Dyspnea, Pedal Edema, Radiating Pain, Rapid Heart Rate, Slow Heart Rate, Syncope, Other - Respiratory Respiratory: absent: As Per HPI, Cough, Dyspnea, Hemoptysis, Dyspnea on Exertion, Wheezing, Snoring, Stridor, Pain on Inspiration, Chest Congestion, Exc essive Mucous Production, Change in Mucous Color, Pain with Coughing, Other - Neurological Neurological: As Per HPI - Psychiatric Psychiatric: absent: As Per HPI, Abnormal Sleep Pattern, Anhedonia, Anxiety, Auditory Hallucinations, Behavioral Changes, Change in Appetite, Change in Libido, Confusion, Depression, Difficulty Concentrating, Hallucinations, Homicidal Ideation, Hopelessness, Irritability, Memory Loss, Mood Swings, Panic Attacks, Paranoia, Suicidal Ideation, Visual Hallucinations, Tactile Hallucinations, Other - Endocrine Endocrine: absent: As Per HPI, Change in Body Appearance, Change in Libido, Cold Intolorance, Deepening of Voice, Excessive Sweating, Fatigue, Flushing, Heat Intolorance, Increase in Ring/Shoe/Hat Size, Palpitations, Polydipsia, Polyphagia, Polyuria, Other - Hematologic/Lymphatic Hematologic: absent: As Per HPI, Easy Bleeding, Easy Bruising, Lymphadenopathy, Other Past Patient History - Infectious Disease Hx of Infectious Diseases: None - Tetanus Immunizations Tetanus Immunization: Unknown - Past Medical History & Family History Past Medical History?: Yes - Past Social History Smoking Status: Former Smoker - CARDIAC Hx Cardiac Disorders: Yes - PULMONARY Hx Respiratory Disorders: No - NEUROLOGICAL Hx Neurological Disorder: No - HEENT Hx HEENT Problems: No - RENAL Hx Chronic Kidney Disease: No - ENDOCRINE/METABOLIC Hx Endocrine Disorders: Yes - HEMATOLOGICAL/ONCOLOGICAL Hx Blood Disorders: Yes - INTEGUMENTARY Hx Dermatological Problems: No - MUSCULOSKELETAL/RHEUMATOLOGICAL Hx Musculoskeletal Disorders: No - GASTROINTESTINAL Hx Gastrointestinal Disorders: No - GENITOURINARY/GYNECOLOGICAL Hx Genitourinary Disorders: No - PSYCHIATRIC Hx Psychophysiologic Disorder: No - SURGICAL HISTORY Hx Surgeries: Yes Other/Comment: Foot surgery - ANESTHESIA Hx Anesthesia: Yes Hx Anesthesia Reactions: No Meds Allergies/Adverse Reactions: Allergies Allergy/AdvReac Type Severity Reaction Status Date / Time Penicillins Allergy RASH Verified 07/28/18 09:04 - Medications Medications: Current Medications Acetaminophen (Tylenol 325mg Tab) 650 mg PO Q4 PRN PRN Reason: Pain, Mild (1-3) Atorvastatin Calcium (Lipitor) 20 mg PO DAILY [facility] Last Admin: 01/27/19 10:42 Dose: 20 mg Dexamethasone (Decadron Inj) 6 mg IV Q6 [facility] Ketorolac Tromethamine (Toradol) 30 mg IVP Q6 PRN PRN Reason: Pain, moderate (4-7) Losartan Potassium (Cozaar) 50 mg PO DAILY [facility] Last Admin: 01/27/19 08:57 Dose: 50 mg Metformin HCl (Glucophage) 850 mg PO BID [facility] Last Admin: 01/27/19 08:57 Dose: 850 mg Physical Exam - Constitutional Appears: Well - Head Exam Head Exam: ATRAUMATIC, NORMAL INSPECTION, NORMOCEPHALIC - Eye Exam Eye Exam: EOMI, Normal appearance, PERRL Pupil Exam: NORMAL ACCOMODATION, PERRL - ENT Exam ENT Exam: Mucous Membranes Moist, Normal Exam - Neck Exam Neck exam: Positive for: Normal Inspection - Respiratory Exam Respiratory Exam: Clear to Auscultation Bilateral, NORMAL BREATHING PATTERN - Cardiovascular Exam Cardiovascular Exam: REGULAR RHYTHM, +S1, +S2 - GI/Abdominal Exam GI & Abdominal Exam: Normal Bowel Sounds, Soft. absent: Tenderness - Extremities Exam Extremities exam: Positive for: normal inspection - Back Exam Back exam: NORMAL INSPECTION - Neurological Exam Neurological exam: Alert, CN II-XII Intact, Normal Gait, Oriented x3, Reflexes Normal - Psychiatric Exam Psychiatric exam: Normal Affect, Normal Mood - Skin Skin Exam: Dry, Intact, Normal Color, Warm Results - Vital Signs Recent Vital Signs: Last Vital Signs Temp 97.5 F L 01/27/19 08:00 Pulse 72 01/27/19 08:00 Resp 18 01/27/19 08:00 BP 125/76 01/27/19 08:00 Pulse Ox 93 L 01/27/19 08:00 - Labs Result Diagrams: 01/27/19 06:20 01/27/19 06:20 Labs: Laboratory Results - last 24 hr 01/26/19 01/26/19 01/26/19 18:24 18:24 18:24 WBC 3.5 L D RBC 4.10 L Hgb 10.6 L Hct 33.3 L MCV 81.1 D MCH 25.9 L MCHC 32.0 L RDW 16.0 H Plt Count 176 MPV 7.4 Neut % (Auto) 53.8 Lymph % (Auto) 32.0 [place] % (Auto) 11.3 H Eos % (Auto) 2.0 Baso % (Auto) 0.9 Neut # (Auto) 1.9 Lymph # (Auto) 1.1 [place] # (Auto) 0.4 Eos # (Auto) 0.1 Baso # (Auto) 0.0 ESR PT 11.1 INR 1.0 APTT 35.5 Sodium 141 Potassium 4.3 Chloride 104 Carbon Dioxide 26 Anion Gap 15 BUN 19 Creatinine 1.0 Est GFR ( Amer) > 60 Est GFR (Non-Af Amer) > 60 POC Glucose (mg/dL) Random Glucose 100 Calcium 9.7 Total Bilirubin 0.2 AST 38 ALT 20 L D Alkaline Phosphatase 52 Total Protein 7.9 Albumin 4.6 Globulin 3.3 Albumin/Globulin Ratio 1.4 Triglycerides Cholesterol LDL Cholesterol Direct HDL Cholesterol Thyroxine (T4) TSH 3rd Generation Urine Color Urine Clarity Urine pH Ur Specific [place] Urine Protein Urine Glucose (UA) Urine Ketones Urine Blood Urine Nitrate Urine Bilirubin Urine Urobilinogen Ur Leukocyte Esterase Urine RBC (Auto) Urine Microscopic WBC Ur Squamous Epith Cells 01/26/19 01/27/19 01/27/19 19:26 05:23 06:20 WBC RBC Hgb Hct MCV MCH MCHC RDW Plt Count MPV Neut % (Auto) Lymph % (Auto) [place] % (Auto) Eos % (Auto) Baso % (Auto) Neut # (Auto) Lymph # (Auto) [place] # (Auto) Eos # (Auto) Baso # (Auto) ESR 22 H PT INR APTT Sodium 140 Potassium 4.4 Chloride 105 Carbon Dioxide 22 Anion Gap 17 BUN 20 Creatinine 1.0 Est GFR ( Amer) > 60 Est GFR (Non-Af Amer) > 60 POC Glucose (mg/dL) 155 H Random Glucose 166 H Calcium 9.9 Total Bilirubin 0.2 AST 21 ALT 24 Alkaline Phosphatase 49 Total Protein 7.7 Albumin 4.4 Globulin 3.3 Albumin/Globulin Ratio 1.3 Triglycerides 77 Cholesterol 106 LDL Cholesterol Direct 49 HDL Cholesterol 35 Thyroxine (T4) 7.85 TSH 3rd Generation 1.45 Urine Color Urine Clarity Urine pH Ur Specific [place] Urine Protein Urine Glucose (UA) Urine Ketones Urine Blood Urine Nitrate Urine Bilirubin Urine Urobilinogen Ur Leukocyte Esterase Urine RBC (Auto) Urine Microscopic WBC Ur Squamous Epith Cells 01/27/19 01/27/19 01/27/19 06:20 09:56 10:57 WBC 3.6 L RBC 4.10 L Hgb 10.8 L Hct 33.3 L MCV 81.3 MCH 26.3 L MCHC 32.4 L RDW 15.8 H Plt Count 175 MPV 7.5 Neut % (Auto) 73.1 Lymph % (Auto) 23.6 [place] % (Auto) 2.9 Eos % (Auto) 0.1 Baso % (Auto) 0.3 Neut # (Auto) 2.6 Lymph # (Auto) 0.8 L [place] # (Auto) 0.1 Eos # (Auto) 0.0 Baso # (Auto) 0.0 ESR 18 PT INR APTT Sodium Potassium Chloride Carbon Dioxide Anion Gap BUN Creatinine Est GFR ( Amer) Est GFR (Non-Af Amer) POC Glucose (mg/dL) 300 H Random Glucose Calcium Total Bilirubin AST ALT Alkaline Phosphatase Total Protein Albumin Globulin Albumin/Globulin Ratio Triglycerides Cholesterol LDL Cholesterol Direct HDL Cholesterol Thyroxine (T4) TSH 3rd Generation Urine Color Yellow Urine Clarity Slighty-cloudy Urine pH 6.0 Ur Specific [place] 1.023 Urine Protein 100 Urine Glucose (UA) Neg Urine Ketones Negative Urine Blood Small Urine Nitrate Negative Urine Bilirubin Negative Urine Urobilinogen 0.2-1.0 Ur Leukocyte Esterase Neg Urine RBC (Auto) 3 Urine Microscopic WBC < 1 Ur Squamous Epith Cells 2 Assessment & Plan (1) Headache Assessment and Plan: The patient does not have a previous history of headache, and due to his age and complaints, he should be evaluated with an MRI of the brain with and without contrast to rule out a potential intracranial mass. Treatment of the headache with decadron 10 mg, depakote 500 mg and magnesium sulfate 2 grams IV once was successful. No further management for the headache at this time. Thank you for this consultation. Status: Acute
[2019-01-27] MEDS ORDERED: Gadodiamide 287 MG/ML VIAL (15ML) IV ONE (13:54)
--- NOTE | 2019-01-27 16:24 | MRI ---
Date of service: 01/27/2019 PROCEDURE: MRI BRAIN WITH AND WITHOUT CONTRAST HISTORY: CASIANO/blurry vision COMPARISON: CT head without contrast from 02/12/2019. TECHNIQUE: Multiplanar, multisequence MR images of the brain were obtained with and without intravenous contrast enhancement. 15 cc Omniscan was injected intravenously. FINDINGS: HEMORRHAGE: None DWI: No evidence of an acute or early subacute infarction. BRAIN PARENCHYMA: There are mild chronic microangiopathic changes. There is no mass, mass effect or abnormal extra-axial fluid collection. There is no territorial infarction. The midline sagittal structures are normal. ENHANCEMENT: No abnormal intracranial enhancement. VENTRICLES: There is mild age-related global parenchymal volume loss and proportionate enlargement of the ventricles and cortical sulci with parietal predominance. CRANIUM: There is normal bone marrow signal pattern. ORBITS: Grossly unremarkable. PARANASAL SINUSES/MASTOIDS: Predominantly clear. VASCULAR SYSTEM: There are normal signal voids in the larger intracranial arteries. OTHER FINDINGS: None . IMPRESSION: No acute intracranial abnormality. Mild chronic microangiopathic changes. Mild age-related global parenchymal volume loss with parietal lobe predominance.
--- NOTE | 2019-01-27 18:50 | CP.PCM.HP ---
History of Present Illness - History of Present Illness History of Present Illness: CC: Headache. 73 y/o M, PMHx DMII, HTN, Hypercholesterolemia, O/A. Pt came to [facility] [place] on 01/26/19 to be evaluated for acute bitemporal headache that began 3 days [employer], described as pressure and throbbing type, moderate to severe intensity 7:10, associated to mild blurred vision, pain radiated to neck/upper back, Pt taking Advil with unrelieved pain. Worsening symptoms: Vision disturbance. Aggravated factor: Loud sounds. Pt denied: Fever, chills, n/v/d, abdominal pain, urinary symptoms, CP, palpitations, syncope, dizziness, SOB, cough, sick contact, resent travel out of [facility]. Head and Neck CT showed: No acute intracranial abnormality, no evidence of endoluminal thrombus, occlusion or stenosis. Brain MRI: No acute abnormality. Carotid Artery U-S: R and L ICA degree of stenosis less than 50%. Present on Admission - Present on Admission Any Indicators Present on Admission: No Review of Systems - Constitutional Constitutional: Headache - EENT Eyes: Other Visual Disturbances Ears: Other (negative) Nose/Mouth/Throat: Other (negative) - Cardiovascular Cardiovascular: Other (negative) - Respiratory Respiratory: Other (negative) - Gastrointestinal Gastrointestinal: Other (negative) - Genitourinary Genitourinary: Other (negative) - Musculoskeletal Musculoskeletal: Neck Pain - Integumentary Integumentary: Other (negative) - Neurological Neurological: Headaches, Other Visual Disturbances - Psychiatric Psychiatric: Other (negative) - Endocrine Endocrine: Other (negative) - Hematologic/Lymphatic Hematologic: Other (negative) Past Patient History - Infectious Disease Hx of Infectious Diseases: None - Tetanus Immunizations Tetanus Immunization: Unknown - Past Medical History & Family History Past Medical History?: Yes - Past Social History Smoking Status: Former Smoker Alcohol: Occasional Drugs: Denies Home Situation {Lives}: With Family - CARDIAC Hx Cardiac Disorders: Yes Hx Hypercholesterolemia: Yes Hx Hypertension: Yes - PULMONARY Hx Respiratory Disorders: No - NEUROLOGICAL Hx Neurological Disorder: No - HEENT Hx HEENT Problems: No - RENAL Hx Chronic Kidney Disease: No - ENDOCRINE/METABOLIC Hx Endocrine Disorders: Yes Hx Diabetes Mellitus Type 2: Yes - HEMATOLOGICAL/ONCOLOGICAL Hx Blood Disorders: Yes - INTEGUMENTARY Hx Dermatological Problems: No - MUSCULOSKELETAL/RHEUMATOLOGICAL Hx Musculoskeletal Disorders: Yes Hx Arthritis: Yes Hx Back Pain: Yes - GASTROINTESTINAL Hx Gastrointestinal Disorders: No - GENITOURINARY/GYNECOLOGICAL Hx Genitourinary Disorders: No - PSYCHIATRIC Hx Psychophysiologic Disorder: No - SURGICAL HISTORY Hx Surgeries: Yes Other/Comment: Foot surgery - ANESTHESIA Hx Anesthesia: Yes Hx Anesthesia Reactions: No Meds Home Medications: Home Medication List Medication Instructions Recorded Confirmed Type Sulfamethoxazole/Trimethoprim 1 tab PO BID #7 tab 01/28/19 Rx [Bactrim DS 800 mg-160 mg] Allergies/Adverse Reactions: Allergies Allergy/AdvReac Type Severity Reaction Status Date / Time Penicillins Allergy RASH Verified 07/28/18 09:04 Physical Exam - Constitutional Appears: No Acute Distress - Head Exam Head Exam: NORMAL INSPECTION - Eye Exam Eye Exam: PERRL - ENT Exam ENT Exam: Normal Exam - Neck Exam Neck exam: Positive for: Normal Inspection - Respiratory Exam Respiratory Exam: NORMAL BREATHING PATTERN - Cardiovascular Exam Cardiovascular Exam: REGULAR RHYTHM - GI/Abdominal Exam GI & Abdominal Exam: Normal Bowel Sounds, Soft - Extremities Exam Extremities exam: Positive for: normal inspection - Back Exam Back exam: NORMAL INSPECTION - Neurological Exam Neurological exam: Alert, Oriented x3 Additional comments: No motor/sensory deficit. - Psychiatric Exam Psychiatric exam: Normal Mood - Skin Skin Exam: Warm Results - Vital Signs Recent Vital Signs: Last Vital Signs Temp 97.5 F L 01/27/19 15:47 Pulse 83 01/27/19 15:47 Resp 20 01/27/19 15:47 BP 134/76 01/27/19 15:47 Pulse Ox 94 L 01/27/19 15:47 reviewed J.PGuillermina - Labs Result Diagrams: 01/27/19 06:20 01/27/19 06:20 Labs: Laboratory Results - last 24 hr 01/26/19 01/26/19 01/27/19 18:24 19:26 05:23 WBC RBC Hgb Hct MCV MCH MCHC RDW Plt Count MPV Neut % (Auto) Lymph % (Auto) [place] % (Auto) Eos % (Auto) Baso % (Auto) Neut # (Auto) Lymph # (Auto) [place] # (Auto) Eos # (Auto) Baso # (Auto) ESR 22 H Sodium 141 Potassium 4.3 Chloride 104 Carbon Dioxide 26 Anion Gap 15 BUN 19 Creatinine 1.0 Est GFR ( Amer) > 60 Est GFR (Non-Af Amer) > 60 POC Glucose (mg/dL) 155 H Random Glucose 100 Hemoglobin A1c Calcium 9.7 Total Bilirubin 0.2 AST 38 ALT 20 L D Alkaline Phosphatase 52 Total Protein 7.9 Albumin 4.6 Globulin 3.3 Albumin/Globulin Ratio 1.4 Triglycerides Cholesterol LDL Cholesterol Direct HDL Cholesterol Thyroxine (T4) TSH 3rd Generation Urine Color Urine Clarity Urine pH Ur Specific [place] Urine Protein Urine Glucose (UA) Urine Ketones Urine Blood Urine Nitrate Urine Bilirubin Urine Urobilinogen Ur Leukocyte Esterase Urine RBC (Auto) Urine Microscopic WBC Ur Squamous Epith Cells 01/27/19 01/27/19 01/27/19 06:20 06:20 08:20 WBC 3.6 L RBC 4.10 L Hgb 10.8 L Hct 33.3 L MCV 81.3 MCH 26.3 L MCHC 32.4 L RDW 15.8 H Plt Count 175 MPV 7.5 Neut % (Auto) 73.1 Lymph % (Auto) 23.6 [place] % (Auto) 2.9 Eos % (Auto) 0.1 Baso % (Auto) 0.3 Neut # (Auto) 2.6 Lymph # (Auto) 0.8 L [place] # (Auto) 0.1 Eos # (Auto) 0.0 Baso # (Auto) 0.0 ESR 18 Sodium 140 Potassium 4.4 Chloride 105 Carbon Dioxide 22 Anion Gap 17 BUN 20 Creatinine 1.0 Est GFR ( Amer) > 60 Est GFR (Non-Af Amer) > 60 POC Glucose (mg/dL) Random Glucose 166 H Hemoglobin A1c 6.7 H Calcium 9.9 Total Bilirubin 0.2 AST 21 ALT 24 Alkaline Phosphatase 49 Total Protein 7.7 Albumin 4.4 Globulin 3.3 Albumin/Globulin Ratio 1.3 Triglycerides 77 Cholesterol 106 LDL Cholesterol Direct 49 HDL Cholesterol 35 Thyroxine (T4) 7.85 TSH 3rd Generation 1.45 Urine Color Urine Clarity Urine pH Ur Specific [place] Urine Protein Urine Glucose (UA) Urine Ketones Urine Blood Urine Nitrate Urine Bilirubin Urine Urobilinogen Ur Leukocyte Esterase Urine RBC (Auto) Urine Microscopic WBC Ur Squamous Epith Cells 01/27/19 01/27/19 01/27/19 09:56 10:57 16:11 WBC RBC Hgb Hct MCV MCH MCHC RDW Plt Count MPV Neut % (Auto) Lymph % (Auto) [place] % (Auto) Eos % (Auto) Baso % (Auto) Neut # (Auto) Lymph # (Auto) [place] # (Auto) Eos # (Auto) Baso # (Auto) ESR Sodium Potassium Chloride Carbon Dioxide Anion Gap BUN Creatinine Est GFR ( Amer) Est GFR (Non-Af Amer) POC Glucose (mg/dL) 300 H 120 H Random Glucose Hemoglobin A1c Calcium Total Bilirubin AST ALT Alkaline Phosphatase Total Protein Albumin Globulin Albumin/Globulin Ratio Triglycerides Cholesterol LDL Cholesterol Direct HDL Cholesterol Thyroxine (T4) TSH 3rd Generation Urine Color Yellow Urine Clarity Slighty-cloudy Urine pH 6.0 Ur Specific [place] 1.023 Urine Protein 100 Urine Glucose (UA) Neg Urine Ketones Negative Urine Blood Small Urine Nitrate Negative Urine Bilirubin Negative Urine Urobilinogen 0.2-1.0 Ur Leukocyte Esterase Neg Urine RBC (Auto) 3 Urine Microscopic WBC < 1 Ur Squamous Epith Cells 2 reviewed J.P. - EKG Data EKG comments: reviewed J.P. - Imaging and Cardiology CT scan - head Status: Report reviewed by me (Amauri) Neck CT Status: Report reviewed by me MRI - head Status: Report reviewed by me (J.P.) Carotid Artery U-S Status: Report reviewed by me Assessment & Plan (1) Headache Status: Acute Priority: High (2) Hyperglycemia Status: Acute Priority: High (3) Diabetes mellitus type 2 in nonobese Status: Chronic Priority: High (4) HTN (hypertension) Status: Acute Priority: Medium (5) Hyperlipidemia Status: Acute - Assessment and Plan (Free Text) Plan: F/U U C-S, continue Decadron, Toradol prn, Lipitor, Losartan, Metformin and rest of Tx. Neurology consult appreciated - Date & Time Date: 01/27/19 Time: 16:30
--- NOTE | 2019-01-27 19:30 | CARD ---
APPROVED REPORT Date of service: 01/27/2019 EXAM: Two-dimensional and M-mode echocardiogram with Doppler and color Doppler. Other Information Quality : GoodRhythm : NSR INDICATION Headaches,Blurry vision 2D DIMENSIONS IVSd1.02 (0.7-1.1cm)LVDd4.24 (3.9-5.9cm) LVOT Diameter2.29 (1.8-2.4cm)PWd0.85 (0.7-1.1cm) IVSs1.46 (0.8-1.2cm)LVDs3.04 (2.5-4.0cm) FS (%) 28.4 %PWs1.27 (0.8-1.2cm) M-Mode DIMENSIONS Left Atrium (MM)3.40 (2.5-4.0cm)IVSd1.29 (0.7-1.1cm) Aortic Root3.50 (2.2-3.7cm)LVDd5.58 (4.0-5.6cm) Aortic Cusp Exc.2.19 (1.5-2.0cm)PWd1.06 (0.7-1.1cm) IVSs1.54 cmFS (%) 37 % LVDs3.50 (2.0-3.8cm)PWs1.29 cm Aortic Valve AoV Peak Ywmwstyt438.9cm/sAoV VTI25.3cmAO Peak GR.6mmHg LVOT Peak Yakapkcy53.6cm/sLVOT VTI22.68cmAO Mean GR.3mmHg SARAI (VMAX)1.89qh4DTO (VTI)1.85cm2 Mitral Valve MV E Vabivcni79.7cm/sMV DECEL DLBW715dlGC A Acotjvcm76.7cm/s MV OOW30ufC/A ratio0.8MVA (PHT)3.77cm2 TDI Lateral E' Peak V8.80cm/sMedial E' Peak V7.99cm/sE/Lateral E'7.6 E/Medial E'8.3 Tricuspid Valve TR Peak Rowvuckv593or/sRAP VOWMZGPD62wjLwRW Peak Gr.23mmHg [id number] LEFT VENTRICLE The left ventricle is normal size. There is normal left ventricular wall thickness. The left ventricular systolic function is normal. The estimated ejection fraction is 60-65% No regional wall motion abnormalities noted.. Transmitral Doppler flow pattern is Grade I-abnormal relaxation pattern. No left ventricle thrombus noted on this study. There is no ventricular septal defect visualized. There is no left ventricular aneurysm. There is no mass noted in the left ventricle. RIGHT VENTRICLE The right ventricle is normal size. There is normal right ventricular wall thickness. The right ventricular systolic function is normal. ATRIA The left atrium size is normal. The right atrium size is normal. The interatrial septum is intact with no evidence for an atrial septal defect. AORTIC VALVE The aortic valve is normal in structure. No aortic regurgitation is present. There is no aortic valvular stenosis. There is no aortic valvular vegetation. MITRAL VALVE The mitral valve is normal in structure. There is no evidence of mitral valve prolapse. There is no mitral valve stenosis. There is trace mitral valve regurgitation noted. TRICUSPID VALVE The tricuspid valve is normal in structure. There is mild tricuspid valve regurgitation noted. RVSP is calculated at 30 mm Hg. There is no tricuspid valve prolapse or vegetation. There is no tricuspid valve stenosis. PULMONIC VALVE The pulmonary valve is normal in structure. There is no pulmonic valvular regurgitation. There is no pulmonic valvular stenosis. GREAT VESSELS The aortic root is normal in size. The ascending aorta is normal in size. The pulmonary artery is normal. The IVC is not visualized. PERICARDIAL EFFUSION There is no pericardial effusion. There is no pleural effusion. <Conclusion> The estimated ejection fraction is 60-65% Transmitral Doppler flow pattern is Grade I-abnormal relaxation pattern. The left atrium size is normal. There is trace mitral valve regurgitation noted. There is mild tricuspid valve regurgitation noted. RVSP is calculated at 30 mm Hg.
[2019-01-28 08:20] VITALS: RESP 18; TEMP 97.5
--- NOTE | 2019-01-28 09:09 | CP.PCM.PN ---
Subjective - Date & Time of Evaluation Date of Evaluation: 01/28/19 Time of Evaluation: 09:07 Objective - Vital Signs/Intake and Output Vital Signs (last 24 hours): Temp Pulse Resp BP Pulse Ox 97.5 F L 76 18 115/71 94 L 01/28/19 08:20 01/28/19 08:20 01/28/19 08:20 01/28/19 08:20 01/28/19 08:20 - Medications Medications: Current Medications Acetaminophen (Tylenol 325mg Tab) 650 mg PO Q4 PRN PRN Reason: Pain, Mild (1-3) Atorvastatin Calcium (Lipitor) 20 mg PO DAILY [facility] Last Admin: 01/27/19 10:42 Dose: 20 mg Dexamethasone (Decadron Inj) 6 mg IV Q6 [facility] Last Admin: 01/28/19 03:18 Dose: 6 mg Ketorolac Tromethamine (Toradol) 30 mg IVP Q6 PRN PRN Reason: Pain, moderate (4-7) Losartan Potassium (Cozaar) 50 mg PO DAILY [facility] Last Admin: 01/27/19 08:57 Dose: 50 mg Metformin HCl (Glucophage) 850 mg PO BID [facility] Last Admin: 01/27/19 16:10 Dose: 850 mg - Labs Labs: 01/27/19 06:20 01/27/19 06:20 PT 11.1 Seconds (9.8-13.1) 01/26/19 18:24 INR 1.0 01/26/19 18:24 APTT 35.5 Seconds (25.6-37.1) 01/26/19 18:24 Assessment and Plan (1) Headache Assessment & Plan: Imaging reviewed: -Brain MRI (01/27/19): No acute intracranial abnormality. Mild chronic microangi opathic changes. Mild age-related global parenchymal volume loss with parietal lobe predominance. -CTA Head and Neck (01/27/19): 1. No evidence of endoluminal thrombus,occlusion or definite significant stenosis in the intracranial arteries. 2. No evidence of hemodynamically significant stenosis in the internal carotid arteries. 3. Patent bilateral vertebral arteries - Status: Acute
--- NOTE | 2019-01-28 09:23 | CP.PCM.PN ---
Subjective - Date & Time of Evaluation Date of Evaluation: 01/28/19 Time of Evaluation: 09:23 - Subjective Subjective: Neuro F/U Note: Mr. Crews was evaluated this morning at bedside. He has no complaints and states that he feels good today. No further h/a. Denies dizziness, visual changes, chest pain, sob, abd pain, paresthesias. Objective - Vital Signs/Intake and Output Vital Signs (last 24 hours): Temp Pulse Resp BP Pulse Ox 97.5 F L 76 18 115/71 94 L 01/28/19 08:20 01/28/19 08:20 01/28/19 08:20 01/28/19 08:20 01/28/19 08:20 - Medications Medications: Current Medications Acetaminophen (Tylenol 325mg Tab) 650 mg PO Q4 PRN PRN Reason: Pain, Mild (1-3) Atorvastatin Calcium (Lipitor) 20 mg PO DAILY [facility] Last Admin: 01/27/19 10:42 Dose: 20 mg Dexamethasone (Decadron Inj) 6 mg IV Q6 [facility] Last Admin: 01/28/19 03:18 Dose: 6 mg Ketorolac Tromethamine (Toradol) 30 mg IVP Q6 PRN PRN Reason: Pain, moderate (4-7) Losartan Potassium (Cozaar) 50 mg PO DAILY [facility] Last Admin: 01/27/19 08:57 Dose: 50 mg Metformin HCl (Glucophage) 850 mg PO BID [facility] Last Admin: 01/27/19 16:10 Dose: 850 mg - Labs Labs: 01/27/19 06:20 01/27/19 06:20 PT 11.1 Seconds (9.8-13.1) 01/26/19 18:24 INR 1.0 01/26/19 18:24 APTT 35.5 Seconds (25.6-37.1) 01/26/19 18:24 - Constitutional Appears: Well, Non-toxic, No Acute Distress - Head Exam Head Exam: ATRAUMATIC, NORMAL INSPECTION, NORMOCEPHALIC - Eye Exam Eye Exam: EOMI, Normal appearance, PERRL Pupil Exam: NORMAL ACCOMODATION, PERRL - ENT Exam ENT Exam: Mucous Membranes Moist - Neck Exam Neck Exam: Full ROM, Normal Inspection - Respiratory Exam Respiratory Exam: NORMAL BREATHING PATTERN - Extremities Exam Extremities Exam: Full ROM. absent: Calf Tenderness, Pedal Edema - Neurological Exam Neurological Exam: Alert, Awake, CN II-XII Intact, Normal Gait, Oriented x3, Reflexes Normal Neuro motor strength exam: Left Upper Extremity: 5, Right Upper Extremity: 5, Left Lower Extremity: 5, Right Lower Extremity: 5 - Psychiatric Exam Psychiatric exam: Normal Affect, Normal Mood - Skin Skin Exam: Normal Color Assessment and Plan (1) Headache Assessment & Plan: Imaging reviewed: -MRI Brain (01/27/19): No acute intracranial abnormality. Mild chronic microangiopathic changes. Mild age-related global parenchymal volume loss with parietal lobe predominance. -Pt has no further h/a. He is cleared for d/c home today and can f/u with his PMD in the office. Reconsult prn. Thank you for this consultation. Valencia Melara, RETA, [employer] Discussed with Dr. Ferraro Status: Acute
[2019-01-28 09:27] VITALS: BP 123/70; PULSE 85
[2019-01-28 09:28] VITALS: O2SAT 96
--- NOTE | 2019-01-28 12:00 | CP.PCM.PCO ---
Assessment/Plan - Assessment/Plan Assessment (Free Text): Pt stable, seen and cleared for neuro for d/c home. Seen by Dr. Fields and cleared for d/c home. Urine cx growing gm positive cocci. Per Dr. Fields d/c pt home on Bactrim for few days until thursday. Pt made aware taking Bactrim and Losartan may increase K levels and he is to go to PMD's office on Thursday for blood work and also call Dr. Fields's office for f/u urine culture.
--- NOTE | 2019-01-28 14:19 | CP.PCM.DIS ---
Provider - Provider Date of Admission: 01/26/19 20:52 Attending physician: Kit Fields MD Consults: 01/27/19 01:23 Neurology Consult Routine Comment: Consulting Provider: Rishabh Ferraro Consulting Physician: Rishabh Ferraro Reason for Consult: Headache and blurry vision Time Spent in preparation of Discharge (in minutes): 35 Diagnosis - Discharge Diagnosis (1) Headache Status: Acute Priority: High (2) Hyperglycemia Status: Acute Priority: High (3) Diabetes mellitus type 2 in nonobese Status: Chronic Priority: High (4) HTN (hypertension) Status: Acute Priority: Medium (5) Hyperlipidemia Status: Acute Hospital Course - Lab Results Lab Results: Micro Results 01/27/19 09:56 Urine Random Urine Culture - Preliminary Gram Positive Cocci Most Recent Lab Values WBC 3.6 K/uL (4.8-10.8) L 01/27/19 06:20 RBC 4.10 Mil/uL (4.40-5.90) L 01/27/19 06:20 Hgb 10.8 g/dL (12.0-18.0) L 01/27/19 06:20 Hct 33.3 % (35.0-51.0) L 01/27/19 06:20 MCV 81.3 fl (80.0-94.0) 01/27/19 06:20 MCH 26.3 pg (27.0-31.0) L 01/27/19 06:20 MCHC 32.4 g/dL (33.0-37.0) L 01/27/19 06:20 RDW 15.8 % (11.5-14.5) H 01/27/19 06:20 Plt Count 175 K/uL (130-400) 01/27/19 06:20 MPV 7.5 fl (7.2-11.7) 01/27/19 06:20 Neut % (Auto) 73.1 % (50.0-75.0) 01/27/19 06:20 Lymph % (Auto) 23.6 % (20.0-40.0) 01/27/19 06:20 [place] % (Auto) 2.9 % (0.0-10.0) 01/27/19 06:20 Eos % (Auto) 0.1 % (0.0-4.0) 01/27/19 06:20 Baso % (Auto) 0.3 % (0.0-2.0) 01/27/19 06:20 Neut # (Auto) 2.6 K/uL (1.8-7.0) 01/27/19 06:20 Lymph # (Auto) 0.8 K/uL (1.0-4.3) L 01/27/19 06:20 [place] # (Auto) 0.1 K/uL (0.0-0.8) 01/27/19 06:20 Eos # (Auto) 0.0 K/uL (0.0-0.7) 01/27/19 06:20 Baso # (Auto) 0.0 K/uL (0.0-0.2) 01/27/19 06:20 ESR 18 mm/hr (0-20) 01/27/19 06:20 PT 11.1 Seconds (9.8-13.1) 01/26/19 18:24 INR 1.0 01/26/19 18:24 APTT 35.5 Seconds (25.6-37.1) 01/26/19 18:24 Sodium 140 mmol/l (132-148) 01/27/19 06:20 Potassium 4.4 MMOL/L (3.6-5.0) 01/27/19 06:20 Chloride 105 mmol/L (98-107) 01/27/19 06:20 Carbon Dioxide 22 mmol/L (22-30) 01/27/19 06:20 Anion Gap 17 (10-20) 01/27/19 06:20 BUN 20 mg/dl (9-20) 01/27/19 06:20 Creatinine 1.0 mg/dl (0.8-1.5) 01/27/19 06:20 Est GFR ( Amer) > 60 01/27/19 06:20 Est GFR (Non-Af Amer) > 60 01/27/19 06:20 POC Glucose (mg/dL) 247 mg/dL (65-110) H 01/28/19 10:51 Random Glucose 166 mg/dL (75-110) H 01/27/19 06:20 Hemoglobin A1c 6.7 % (4.2-6.5) H 01/27/19 08:20 Calcium 9.9 mg/dL (8.4-10.2) 01/27/19 06:20 Total Bilirubin 0.2 mg/dl (0.2-1.3) 01/27/19 06:20 AST 21 U/L (17-59) 01/27/19 06:20 ALT 24 U/L (21-72) 01/27/19 06:20 Alkaline Phosphatase 49 U/L (38-126) 01/27/19 06:20 Total Protein 7.7 G/DL (6.3-8.2) 01/27/19 06:20 Albumin 4.4 g/dL (3.5-5.0) 01/27/19 06:20 Globulin 3.3 gm/dL (2.2-3.9) 01/27/19 06:20 Albumin/Globulin Ratio 1.3 (1.0-2.1) 01/27/19 06:20 Triglycerides 77 mg/DL (0-149) 01/27/19 06:20 Cholesterol 106 mg/dL (0-199) 01/27/19 06:20 LDL Cholesterol Direct 49 mg/dL (0-129) 01/27/19 06:20 HDL Cholesterol 35 MG/DL (30-70) 01/27/19 06:20 Thyroxine (T4) 7.85 ug/dl (5.5-11.0) 01/27/19 06:20 TSH 3rd Generation 1.45 mIU/ML (0.46-4.68) 01/27/19 06:20 Urine Color Yellow (YELLOW) 01/27/19 09:56 Urine Clarity Slighty-cloudy (Clear) 01/27/19 09:56 Urine pH 6.0 (5.0-8.0) 01/27/19 09:56 Ur Specific [place] 1.023 (1.003-1.030) 01/27/19 09:56 Urine Protein 100 mg/dL (NEGATIVE) 01/27/19 09:56 Urine Glucose (UA) Neg mg/dL (NEGATIVE) 01/27/19 09:56 Urine Ketones Negative mg/dL (NEGATIVE) 01/27/19 09:56 Urine Blood Small (NEGATIVE) 01/27/19 09:56 Urine Nitrate Negative (NEGATIVE) 01/27/19 09:56 Urine Bilirubin Negative (NEGATIVE) 01/27/19 09:56 Urine Urobilinogen 0.2-1.0 mg/dL (0.2-1.0) 01/27/19 09:56 Ur Leukocyte Esterase Neg [place]/uL (Negative) 01/27/19 09:56 Urine RBC (Auto) 3 /hpf (0-3) 01/27/19 09:56 Urine Microscopic WBC < 1 /hpf (0-5) 01/27/19 09:56 Ur Squamous Epith Cells 2 /hpf (0-5) 01/27/19 09:56 - Date & Time of H&P Date of H&P: 01/27/19 Time of H&P: 16:30 Discharge Exam - Head Exam Head Exam: NORMAL INSPECTION - Eye Exam Eye Exam: PERRL - ENT Exam ENT Exam: Normal Exam - Neck Exam Neck exam: Normal Inspection - Respiratory Exam Respiratory Exam: NORMAL BREATHING PATTERN - Cardiovascular Exam Cardiovascular Exam: REGULAR RHYTHM - GI/Abdominal Exam GI & Abdominal Exam: Normal Bowel Sounds, Soft - Extremities Exam Extremities exam: normal inspection - Back Exam Back exam: NORMAL INSPECTION - Neurological Exam Neurological exam: Alert, Oriented x3 Additional comments: No motor sensory deficit. - Psychiatric Exam Psychiatric exam: Normal Mood - Skin Skin Exam: Warm Discharge Plan - Discharge Medications Prescriptions: Sulfamethoxazole/Trimethoprim [Bactrim DS 800 mg-160 mg] 1 tab PO BID #7 tab - Follow Up Plan Condition: FAIR Disposition: HOME/ ROUTINE Patient education suggested?: Yes Instructions: Headache, Adult (DC) Additional Instructions: hacer fredrick con moran doctor primario dentro de 1 semana Referrals: Rishabh Ferraro MD [Medical Doctor] - Maurizio Morales MD [Family Provider] -
== END 2019-01-28 13:52 | disposition home or self-care (01) | DRG 103 ==
LOC: H.ER 16:32 → H.ERHOLD 20:52 → H.MEDSURG1 22:44
PROVIDERS: ADMIT Internal Medicine Pulmonary Disease; ATTEND Internal Medicine Pulmonary Disease
DX: R51 Headache (principal); E11.65 Type 2 diabetes mellitus with hyperglycemia; I10 Essential (primary) hypertension; E78.00 Pure hypercholesterolemia, unspecified; E78.5 Hyperlipidemia, unspecified; Z79.82 Long term (current) use of aspirin; Z87.891 Personal history of nicotine dependence; Z88.0 Allergy status to penicillin; M19.90 Unspecified osteoarthritis, unspecified site; Z79.84 Long term (current) use of oral hypoglycemic drugs; H53.8 Other visual disturbances